=== PATIENT | male | born 1935 | race African-American/Black ===

== ENCOUNTER 2022-10-19 22:18 | Emergency (ER) | payer SELFPAY ==
[~2022-10-19] VITALS: Ht 142.2 cm; Wt 57.0 kg
[2022-10-20 00:07] LABS: BASOPHILS % 0.7 % (0.0-2.0); EOSINOPHILS % 1.7 % (0.0-5.0); HEMATOCRIT. 41.6 % (42.0-52.0); HEMOGLOBIN. 13.4 g/dL (14.0-18.0); LYMPHOCYTES % 10.7 % (20.0-50.0); MEAN CORPUSCULAR VOLUME 84.1 fL (80.0-94.0); MEAN PLATELET VOLUME 8.6 fl (7.4-10.4); MONOCYTES % 5.4 % (2.0-8.0); NEUTROPHILS % 81.5 % (40.0-76.0); PLATELET 98 x1000/uL (130-400); RED BLOOD CELL COUNT 4.94 mill/uL (4.7-6.1); RED CELL DISTRIBUTION WIDTH 15.2 % (11.6-14.6)
[2022-10-20 00:12] LABS: CHLORIDE 101 mEq/L (98-107)
[2022-10-20 01:13] VITALS: BP 141/46
== END 2022-10-20 01:16 | disposition left against medical advice (07) ==
LOC: ER 22:18
DX: R00.1 Bradycardia, unspecified (principal); R10.9 Unspecified abdominal pain; Z88.0 Allergy status to penicillin
CPT/HCPCS: 36415; 71045; 80053; 84484; 85025; 85610; 86850; 86900; 86901; 99284; Z7610